=== PATIENT | male | born 1995 | race Caucasian/White ===

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

== ENCOUNTER → 2018-01-02 | Outpatient (CLI) | payer BC ==
[2018-01-02 09:26] LABS: Basophils % (A) 0 %; Eosinophils # (A) 0.2 k/uL (0-0.7); Eosinophils % (A) 3 %; HCT 41.7 % (39.0-53.0); Lymphocytes # (A) 2.4 k/uL (1.0-4.8); Lymphocytes % (A) 39 %; MCH 28.6 pg (25.0-35.0); MCHC 33.5 g/dL (31.0-37.0); MCV 85.3 fL (80.0-100.0); Mean Platelet Volume 6.6; Monocytes # (A) 0.4 k/uL (0-1.0); Monocytes % (A) 7 %; Neutrophils # (A) 2.9 k/uL (1.3-7.7); Neutrophils % (A) 48 %; Platelet Count 278 k/uL (150-450); RBC 4.89 m/uL (4.30-5.90); RDW 12.8 % (11.5-15.5)
[2018-01-02 09:31] LABS: ALT 29 U/L (21-72); AST 23 U/L (17-59); Albumin 4.4 g/dL (3.5-5.0); Alkaline Phosphatase 97 U/L (38-126); Anion Gap 7 mmol/L; Blood Urea Nitrogen 17 mg/dL (9-20); Calcium 9.6 mg/dL (8.4-10.2); Carbon Dioxide 27 mmol/L (22-30); Chloride 106 mmol/L (98-107); Cholesterol 195 mg/dL (<200); Glucose 99 mg/dL (74-99); HDL Cholesterol 52 mg/dL (40-60); LDL Cholesterol,Calculated 119 mg/dL (0-99); Potassium 4.3 mmol/L (3.5-5.1); Sodium 140 mmol/L (137-145); Total Bilirubin 0.5 mg/dL (0.2-1.3); Total Protein 7.2 g/dL (6.3-8.2); Triglycerides 121 mg/dL (<150)
== END | disposition home or self-care (01) ==
LOC: LABWHC1 09:06
PROVIDERS: ATTEND Pediatrics
DX: Z00.00 Encounter for general adult medical examination without abnormal findings (principal); Z13.220 Encounter for screening for lipoid disorders
CPT/HCPCS: 36415; 80053; 80061; 85025

== ENCOUNTER 2019-05-16 07:10 | Emergency (ER) | payer BC, OTHER ==
[2019-05-16] MEDS ORDERED: CLINDAMYCIN 600 MG in DEXTROSE 5% IN WATER 50 ML IVPB STA ×2 (07:46)
[2019-05-16 08:27] LABS: Basophils % (A) 0 %; Eosinophils # (A) 0.2 k/uL (0-0.7); Eosinophils % (A) 2 %; HCT 39.7 % (39.0-53.0); Lymphocytes # (A) 2.1 k/uL (1.0-4.8); Lymphocytes % (A) 18 %; MCH 30.1 pg (25.0-35.0); MCHC 35.2 g/dL (31.0-37.0); MCV 85.7 fL (80.0-100.0); Mean Platelet Volume 6.8; Monocytes # (A) 0.7 k/uL (0-1.0); Monocytes % (A) 6 %; Neutrophils # (A) 8.6 k/uL (1.3-7.7); Neutrophils % (A) 73 %; Platelet Count 311 k/uL (150-450); RBC 4.64 m/uL (4.30-5.90); RDW 12.2 % (11.5-15.5); WBC 11.7 k/uL (3.8-10.6)
[2019-05-16 08:30] LABS: ALT 22 U/L (21-72); AST 22 U/L (17-59); African American GFR (CKD) >90 (>60 ml/min/1.73 sqM); Albumin 4.3 g/dL (3.5-5.0); Alkaline Phosphatase 88 U/L (38-126); Anion Gap 12 mmol/L; Blood Urea Nitrogen 12 mg/dL (9-20); Carbon Dioxide 24 mmol/L (22-30); Chloride 108 mmol/L (98-107); Glucose 86 mg/dL (74-99); Non-African American GFR(CKD) >90 (>60 ml/min/1.73 sqM); Potassium 4.4 mmol/L (3.5-5.1); Sodium 144 mmol/L (137-145); Total Bilirubin 0.5 mg/dL (0.2-1.3); Total Protein 7.6 g/dL (6.3-8.2)
--- NOTE | 2019-05-16 08:59 | CT ---
EXAMINATION TYPE: CT soft tissue neck w con DATE OF EXAM: 05/16/2019 COMPARISON: None HISTORY: Dental abscess CT DLP: 238 mGycm CONTRAST: CT scan of the neck is performed with IV Contrast, patient injected with 100 ml mL of Isovue 300. Contrast enhanced CT of the neck was performed from the skull base through the lung apices. AIRWAY: The supraglottic, glottic, and subglottic portions of the airway appear patent and free of mass. SALIVARY GLANDS: The submandibular and parotid glands are free of mass or inflammatory process. THYROID GLAND: No nodules or masses seen. LYMPH NODES: No adenopathy seen greater than 1cm. LUNG APICES: No nodule or mass is seen. OTHER there is a small subperiosteal and periapical abscess left posterior mandibular first molar. Th ere is surrounding soft tissue edema. No drainable collection seen. Small focus of bone defect noted. IMPRESSION: Small subperiosteal and periapical abscess left posterior mandibular first molar. There is surroundi ng soft tissue edema. No drainable collection seen. Small focus of bone defect noted.
[2019-05-16] MEDS ORDERED: DEXAMETHASONE SOD PHOSPHATE 10 MG/ML 1 ML VIAL IV STA (09:31)
--- NOTE | 2019-05-16 09:36 | ED ---
ENT HPI - General Chief complaint: Dental/Oral Stated complaint: Dental Pain Time Seen by Provider: 05/16/19 07:18 Source: patient Mode of arrival: ambulatory Limitations: no limitations - History of Present Illness Initial comments: The patient is a 23-year-old male with no past medical history who presents to the emergency department with reported dental infection. He states that it is been present for the past week. He had a previous root canal of tooth 18 in September and as of recently developed pain and swelling. He saw Dr. Al in office last week. He was started on penicillin with one refill. States been taking it 4 times a day as directed. He has a follow-up appointment with the burlap worker on Tuesday. States that his swelling has gotten increasingly worse. He is now having swelling to his jaw which is tracking down to his neck. He denies any difficulty swallowing or shortness of breath. No sensation in his airway is closing off. No fevers or chills. No nausea or vomiting. Denies any chest pain or shortness of breath. States that his pain has improved but the swelling is getting worse. There are no other alleviating, precipitating or modifying factors - Related Data Home Medications Medication Instructions Recorded Confirmed Ibuprofen [Motrin Ib] 800 mg PO Q6H PRN 05/16/19 05/16/19 Penicillin V Potassium [Pen Vee K] 500 mg PO QID 05/16/19 05/16/19 Previous Rx's Medication Instructions Recorded Clindamycin HCl 300 mg PO Q6HR #40 cap 05/16/19 Allergies Allergy/AdvReac Type Severity Reaction Status Date / Time No Known Allergies Allergy Verified 05/16/19 08:07 Review of Systems ROS Statement: Those systems with pertinent positive or pertinent negative responses have been documented in the HPI. ROS Other: All systems not noted in ROS Statement are negative. Past Medical History Past Medical History: No Reported History History of Any Multi-Drug Resistant Organisms: None Reported Past Surgical History: No Surgical Hx Reported, Orthopedic Surgery Additional Past Surgical History / Comment(s): R knee Past Psychological History: No Psychological Hx Reported Smoking Status: Never smoker Past Alcohol Use History: None Reported Past Drug Use History: None Reported General Exam Limitations: no limitations Course Vital Signs 05/16/19 05/16/19 07:13 09:44 Temperature 97.6 F 98.0 F Pulse Rate 78 69 Respiratory 18 21 Rate Blood Pressure 131/82 129/71 O2 Sat by Pulse 100 99 Oximetry Medical Decision Making - Medical Decision Making Upon arrival the patient was placed into room 9. A thorough history and physical exam was performed. Peripheral IV was established. The patient was given a dose of clindamycin. I recommended laboratory studies. White blood cell count is 11.7. CMP is remarkable. The patient does agree to a CT of the soft tissue neck with contrast inserted a small subperiosteal and periapical abscess left posterior mandibular first molar. There is surrounding soft tissue edema. No drainable collection seen. Small focus of bony defect noted. The patient does not demonstrate any crepitance or brawny edema of the neck. No dr telma, trismus, hoarseness or stridor. At [address] Goldstein who stated that the tooth would have to be extracted. He could accommodate the patient in his office tomorrow. He recomme nded that provide the patient with Decadron. I spoke with family who requested that they follow up with her own dentist for extraction. At 925 I did discuss the case with Dr. Al, who is the patient's dentist. He can accommodate the patient in office at 1045 for extraction. Agreed with clindamycin and steroids. The patient is informed that he needs to remain nothing by mouth.the patient and his mother with the treatment plan. He was then discharged in stable condition. He needs to return to the emergency room for any new or worsening symptoms - Lab Data Result diagrams: 05/16/19 08:08 05/16/19 08:08 Lab Results 05/16/19 05/16/19 05/16/19 Range/Units 08:08 08:08 08:08 WBC 11.7 H (3.8-10.6) k/uL RBC 4.64 (4.30-5.90) m/uL Hgb 14.0 (13.0-17.5) gm/dL Hct 39.7 (39.0-53.0) % MCV 85.7 (80.0-100.0) fL MCH 30.1 (25.0-35.0) pg MCHC 35.2 (31.0-37.0) g/dL RDW 12.2 (11.5-15.5) % Plt Count 311 (150-450) k/uL Neutrophils % 73 % Lymphocytes % 18 % Monocytes % 6 % Eosinophils % 2 % Basophils % 0 % Neutrophils # 8.6 H (1.3-7.7) k/uL Lymphocytes # 2.1 (1.0-4.8) k/uL Monocytes # 0.7 (0-1.0) k/uL Eosinophils # 0.2 (0-0.7) k/uL Basophils # 0.0 (0-0.2) k/uL Sodium 144 (137-145) mmol/L Potassium 4.4 (3.5-5.1) mmol/L Chloride 108 H (98-107) mmol/L Carbon Dioxide 24 (22-30) mmol/L Anion Gap 12 mmol/L BUN 12 (9-20) mg/dL Creatinine 0.70 (0.66-1.25) mg/dL Est GFR (CKD-EPI)AfAm >90 (>60 ml/min/1.73 sqM) Est GFR (CKD-EPI)NonAf >90 (>60 ml/min/1.73 sqM) Glucose 86 (74-99) mg/dL Plasma Lactic Acid Dominik 1.4 (0.7-2.0) mmol/L Calcium 10.0 (8.4-10.2) mg/dL Total Bilirubin 0.5 (0.2-1.3) mg/dL AST 22 (17-59) U/L ALT 22 (21-72) U/L Alkaline Phosphatase 88 (38-126) U/L Total Protein 7.6 (6.3-8.2) g/dL Albumin 4.3 (3.5-5.0) g/dL Disposition Clinical Impression: Dental caries, Periapical abscess Disposition: HOME SELF-CARE Condition: Stable Instructions (If sedation given, give patient instructions): Dental Abscess (ED) Additional Instructions: Please proceed to Dr. Cowart's office. Your appointment is at 1045 am. Do not eat or drink anything until your procedure is performed. Return to the emergency room for any new or worsening symptoms Prescriptions: Clindamycin HCl 300 mg PO Q6HR #40 cap Is patient prescribed a controlled substance at d/c from ED?: No Referrals: Roberto Cifuentes MD [Primary Care Provider] - 1-2 days Time of Disposition: 09:36
[2019-05-16 09:46] VITALS: BP 129/71; PULSE 69; RESP 21; TEMP 98
== END 2019-05-16 09:46 | disposition home or self-care (01) ==
LOC: EC 07:10
DX: K04.7 Periapical abscess without sinus (principal); K02.9 Dental caries, unspecified
CPT/HCPCS: 36415; 80053; 83605; 85025; 70491; 99283; 96365; 96375; J1100; Q9967

== ENCOUNTER 2019-05-19 05:56 | Emergency (ER) | payer BC, OTHER ==
[2019-05-19 06:04] VITALS: TEMP 98.2
[2019-05-19] MEDS ORDERED: AMPICILLIN-SULBACTAM 3 GM in SODIUM CHLORIDE 0.9% 100 ML IVPB STA (06:41)
--- NOTE | 2019-05-19 06:46 | ED ---
ENT HPI - General Chief complaint: Dental/Oral Stated complaint: Face swelling Time Seen by Provider: 05/19/19 06:08 Source: patient, RN notes reviewed, old records reviewed Mode of arrival: ambulatory Limitations: no limitations - History of Present Illness Initial comments: Patient is Yoandy 23-year-old male coming presents emergency room today for reeva luation for concerns for left lower jaw dental pain. Patient reports that he had a root canal that was infected removed on Tuesday after being evaluated at the ER at that time. He's been taking clindamycin since Tuesday. They report that after the root canal Patient did have some minor improvement of the swelling but in following day the pain and swelling worsen. Patient reports he has no trouble with swallowing or breathing. Patient states he's had no fevers or chills at this time. Patient states it feels like there is a firm mass relocate his jaw. He did report when he was in the emergency department on 05/16/19 he had a CAT scan. - Related Data Home Medications Medication Instructions Recorded Confirmed Ibuprofen [Motrin Ib] 800 mg PO Q6H PRN 05/16/19 05/16/19 Penicillin V Potassium [Pen Vee K] 500 mg PO QID 05/16/19 05/16/19 Previous Rx's Medication Instructions Recorded Clindamycin HCl 300 mg PO Q6HR #40 cap 05/16/19 Allergies Allergy/AdvReac Type Severity Reaction Status Date / Time No Known Allergies Allergy Verified 05/19/19 06:04 Review of Systems ROS Statement: Those systems with pertinent positive or pertinent negative responses have been documented in the HPI. ROS Other: All systems not noted in ROS Statement are negative. Past Medical History Past Medical History: No Reported History History of Any Multi-Drug Resistant Organisms: None Reported Past Surgical History: No Surgical Hx Reported, Orthopedic Surgery Additional Past Surgical History / Comment(s): R knee Past Psychological History: No Psychological Hx Reported Smoking Status: Never smoker Past Alcohol Use History: None Reported Past Drug Use History: None Reported General Exam - General Exam Comments Initial Comments: Pleasant 23-year-old male. No distress. Limitations: no limitations General appearance: alert, in no apparent distress Head exam: Present: atraumatic, normocephalic, normal inspection Eye exam: Present: normal appearance, PERRL, EOMI. Absent: scleral icterus, conjunctival injection, periorbital swelling ENT exam: Present: normal exam, mucous membranes moist, other (tenderness over R lower mandible, firm mass. Gum line shows missing right lower molar. No drainable mass in lower jaw at this time. PAtient has no trisumus. ) Neck exam: Present: normal inspection. Absent: tenderness, meningismus, lymphadenopathy Respiratory exam: Present: normal lung sounds bilaterally. Absent: respiratory distress, wheezes, rales, rhonchi, stridor Cardiovascular Exam: Present: regular rate, normal rhythm, normal heart sounds. Absent: systolic murmur, diastolic murmur, rubs, gallop, clicks GI/Abdominal exam: Present: soft, normal bowel sounds. Absent: distended, tenderness, guarding, rebound, rigid Extremities exam: Present: normal inspection, full ROM, normal capillary refill. Absent: tenderness, pedal edema, joint swelling, calf tenderness Back exam: Present: normal inspection Neurological exam: Present: alert, oriented X3, CN II-XII intact Psychiatric exam: Present: normal affect, normal mood Skin exam: Present: warm, dry, intact, normal color. Absent: rash Course Vital Signs 05/19/19 06:01 Temperature 98.2 F Pulse Rate 85 Respiratory 18 Rate Blood Pressure 129/77 O2 Sat by Pulse 98 Oximetry Medical Decision Making - Medical Decision Making 23-year-old male presents with right-sided lower mandible swelling. Patient was seen in emergency department on Tuesday started on clindamycin. Patient has been taking this as prescribed. He had a root canal removed on Tuesday as well. Patient reports she has not followed up with Ricardo's time. Patient reports that he is afebrile, denies any significant trismus or difficulty breathing or swallowing. I discussed case with Dr. Oneill, who examined the Patient as well. Recommended that we can give Patient a dose of Unasyn and Decadron in emergency department. No need for further imaging at this time as he did have a CAT scan 3 days ago. And the Patient can continue clindamycin upon discharge. Discussed the importance of following up promptly with his dentist to proceeded with the root canal removal. Angles given referral for oral maxillofacial surgeon. Patient is agreeable history plan will comply. Return parameters were discussed. - Lab Data Result diagrams: 05/19/19 06:55 05/19/19 06:55 Lab Results 05/19/19 05/19/19 Range/Units 06:55 06:55 WBC 11.7 H (3.8-10.6) k/uL RBC 4.67 (4.30-5.90) m/uL Hgb 13.7 (13.0-17.5) gm/dL Hct 39.8 (39.0-53.0) % MCV 85.1 (80.0-100.0) fL MCH 29.2 (25.0-35.0) pg MCHC 34.3 (31.0-37.0) g/dL RDW 12.2 (11.5-15.5) % Plt Count 335 (150-450) k/uL Neutrophils % 71 % Lymphocytes % 19 % Monocytes % 6 % Eosinophils % 1 % Basophils % 0 % Neutrophils # 8.3 H (1.3-7.7) k/uL Lymphocytes # 2.3 (1.0-4.8) k/uL Monocytes # 0.7 (0-1.0) k/uL Eosinophils # 0.2 (0-0.7) k/uL Basophils # 0.0 (0-0.2) k/uL Sodium 143 (137-145) mmol/L Potassium 4.6 (3.5-5.1) mmol/L Chloride 107 (98-107) mmol/L Carbon Dioxide 27 (22-30) mmol/L Anion Gap 9 mmol/L BUN 17 (9-20) mg/dL Creatinine 0.83 (0.66-1.25) mg/dL Est GFR (CKD-EPI)AfAm >90 (>60 ml/min/1.73 sqM) Est GFR (CKD-EPI)NonAf >90 (>60 ml/min/1.73 sqM) Glucose 105 H (74-99) mg/dL Calcium 10.0 (8.4-10.2) mg/dL Total Bilirubin 0.7 (0.2-1.3) mg/dL AST 21 (17-59) U/L ALT 17 (4-49) U/L Alkaline Phosphatase 97 (38-126) U/L Total Protein 7.7 (6.3-8.2) g/dL Albumin 4.4 (3.5-5.0) g/dL Disposition Clinical Impression: Periapical abscess Disposition: HOME SELF-CARE Condition: Stable Instructions (If sedation given, give patient instructions): Dental Abscess (ED) Additional Instructions: Recommended close follow-up with your dentist. Return to the emergency department if any alarming signs or symptoms occur. Rest, remain hydrated. Continue clindamycin prescription. There is any fevers return for reevaluation. Is patient prescribed a controlled substance at d/c from ED?: No Referrals: Roberto Cifuentes MD [Primary Care Provider] - 1-2 days Kalia Goldstein DDS [STAFF PHYSICIAN] - 1-2 days Time of Disposition: 07:48
[2019-05-19 07:06] LABS: Basophils % (A) 0 %; Eosinophils # (A) 0.2 k/uL (0-0.7); Eosinophils % (A) 1 %; HCT 39.8 % (39.0-53.0); HGB 13.7 gm/dL (13.0-17.5); Lymphocytes # (A) 2.3 k/uL (1.0-4.8); Lymphocytes % (A) 19 %; MCH 29.2 pg (25.0-35.0); MCHC 34.3 g/dL (31.0-37.0); MCV 85.1 fL (80.0-100.0); Mean Platelet Volume 6.9; Monocytes # (A) 0.7 k/uL (0-1.0); Monocytes % (A) 6 %; Neutrophils # (A) 8.3 k/uL (1.3-7.7); Neutrophils % (A) 71 %; Platelet Count 335 k/uL (150-450); RBC 4.67 m/uL (4.30-5.90); RDW 12.2 % (11.5-15.5); WBC 11.7 k/uL (3.8-10.6)
[2019-05-19] MEDS ORDERED: DEXAMETHASONE SOD PHOSPHATE 10 MG/ML 1 ML VIAL IV STA (07:16)
[2019-05-19 07:31] LABS: ALT 17 U/L (4-49); AST 21 U/L (17-59); African American GFR (CKD) >90 (>60 ml/min/1.73 sqM); Albumin 4.4 g/dL (3.5-5.0); Alkaline Phosphatase 97 U/L (38-126); Anion Gap 9 mmol/L; Blood Urea Nitrogen 17 mg/dL (9-20); Carbon Dioxide 27 mmol/L (22-30); Chloride 107 mmol/L (98-107); Glucose 105 mg/dL (74-99); Non-African American GFR(CKD) >90 (>60 ml/min/1.73 sqM); Potassium 4.6 mmol/L (3.5-5.1); Sodium 143 mmol/L (137-145); Total Bilirubin 0.7 mg/dL (0.2-1.3); Total Protein 7.7 g/dL (6.3-8.2)
[2019-05-19 08:31] VITALS: BP 121/76; PULSE 76; RESP 169
== END 2019-05-19 08:16 | disposition home or self-care (01) ==
LOC: EC 05:56
DX: K04.7 Periapical abscess without sinus (principal)
CPT/HCPCS: 36415; 80053; 85025; 87040; 99284; 96365; 96375; J1100; J0295

== ENCOUNTER 2021-08-19 16:45 | Emergency (ER) | payer BC, OTHER ==
[2021-08-19 17:02] VITALS: BP 126/85; PULSE 95; RESP 18; TEMP 98.7
--- NOTE | 2021-08-19 19:43 | ED ---
General Adult HPI - General Chief complaint: GI Bleed Stated complaint: ABD pain & blood in stool Time Seen by Provider: 08/19/21 19:26 Source: patient, family Mode of arrival: ambulatory Limitations: no limitations - History of Present Illness Initial comments: Dictation was produced using [employer] dictation software. please excuse any grammatical, word or spelling errors. Chief Complaint: 25 y Old male presents with fianc for GI bleed and suprapubic pain History of Present Illness: 25-year-old mild he has no safety past medical history. This morning he woke up with GI bleed. States there were several drops of blood in the toilet. He's had multiple bouts of dyschezia today. Patient has suprapubic abdominal pain and denies any fever or constitutional symptoms. Patient has any recent travel. He works on a farm. He denies any rectal pain. The ROS documented in this emergency department record has been reviewed and confirmed by me. Those systems with pertinent positive or negative responses have been documented in the HPI. All other systems are other negative and/or noncontributory. PHYSICAL EXAM: General Impression: Alert and oriented x3, not in acute distress HEENT: Normocephalic atraumatic, extra-ocular movements intact, pupils equal and reactive to light bilaterally, mucous membranes moist. Cardiovascular: Heart regular rate and rhythm Chest: Able to complete full sentences, no retractions, no tachypnea Abdomen: abdomen soft, mild tenderness to the suprapubic area, non-distended, no organomegaly Musculoskeletal: Pulses present and equal in all extremities, no peripheral edema Motor: no focal deficits noted Neurological: CN II-XII grossly intact, no focal motor or sensory deficits noted Skin: Intact with no visualized rashes Psych: Normal affect and mood Rectal: No hemorrhoids or fissures, patient given a glove and provided stool sample for stool occult blood test ED course: 25-year-old male presents to the emergency department for suprapubic abdominal pain and GI bleed. Vital signs upon arrival are within acceptable limits. Labs are evaluation obtained. Mild leukocytosis of 13.2. Normal stable. Coag panel is negative. Metabolic panel is within acceptable limits. Stool occult blood is positive. Computed tomography scan abdomen and pelvis shows no acute abnormalities. Suspe ct that patient has a bleeding internal hemorrhoid. Patient given referral to GI doctor. - Related Data Home Medications Medication Instructions Recorded Confirmed No Known Home Medications 08/19/21 08/19/21 Allergies Allergy/AdvReac Type Severity Reaction Status Date / Time No Known Allergies Allergy Verified 08/19/21 21:09 Review of Systems ROS Statement: Those systems with pertinent positive or pertinent negative responses have been documented in the HPI. ROS Other: All systems not noted in ROS Statement are negative. Past Medical History Past Medical History: No Reported History History of Any Multi-Drug Resistant Organisms: None Reported Past Surgical History: No Surgical Hx Reported, Orthopedic Surgery Additional Past Surgical History / Comment(s): R knee Past Psychological History: No Psychological Hx Reported Smoking Status: Never smoker Past Alcohol Use History: None Reported Past Drug Use History: None Reported General Exam Limitations: no limitations Course Vital Signs 08/19/21 17:01 Temperature 98.7 F Pulse Rate 95 Respiratory 18 Rate Blood Pressure 126/85 O2 Sat by Pulse 97 Oximetry Medical Decision Making - Lab Data Result diagrams: 08/19/21 20:02 08/19/21 20:02 Lab Results 08/19/21 08/19/21 08/19/21 Range/Units 19:44 19:44 20:02 WBC 13.2 H (3.8-10.6) k/uL RBC 5.11 (4.30-5.90) m/uL Hgb 15.1 (13.0-17.5) gm/dL Hct 43.7 (39.0-53.0) % MCV 85.5 (80.0-100.0) fL MCH 29.5 (25.0-35.0) pg MCHC 34.4 (31.0-37.0) g/dL RDW 13.2 (11.5-15.5) % Plt Count 289 (150-450) k/uL MPV 7.2 Neutrophils % 78 % Lymphocytes % 16 % Monocytes % 4 % Eosinophils % 1 % Basophils % 0 % Neutrophils # 10.4 H (1.3-7.7) k/uL Lymphocytes # 2.1 (1.0-4.8) k/uL Monocytes # 0.5 (0-1.0) k/uL Eosinophils # 0.1 (0-0.7) k/uL Basophils # 0.0 (0-0.2) k/uL PT (9.0-12.0) sec INR (<1.2) APTT (22.0-30.0) sec Sodium (137-145) mmol/L Potassium (3.5-5.1) mmol/L Chloride (98-107) mmol/L Carbon Dioxide (22-30) mmol/L Anion Gap mmol/L BUN (9-20) mg/dL Creatinine (0.66-1.25) mg/dL Est GFR (CKD-EPI)AfAm (>60 ml/min/1.73 sqM) Est GFR (CKD-EPI)NonAf (>60 ml/min/1.73 sqM) Glucose (74-99) mg/dL Calcium (8.4-10.2) mg/dL Stool Occult Blood Positive (Negative) Blood Type AB Negative Blood Type Recheck No Previous Record Bld Type Recheck Status CABO Indicated Antibody Screen NEGATIVE Spec Expiration Date 08/22/2021 - 234308/19/21 08/19/21 Range/Units 20:02 20:02 WBC (3.8-10.6) k/uL RBC (4.30-5.90) m/uL Hgb (13.0-17.5) gm/dL Hct (39.0-53.0) % MCV (80.0-100.0) fL MCH (25.0-35.0) pg MCHC (31.0-37.0) g/dL RDW (11.5-15.5) % Plt Count (150-450) k/uL MPV Neutrophils % % Lymphocytes % % Monocytes % % Eosinophils % % Basophils % % Neutrophils # (1.3-7.7) k/uL Lymphocytes # (1.0-4.8) k/uL Monocytes # (0-1.0) k/uL Eosinophils # (0-0.7) k/uL Basophils # (0-0.2) k/uL PT 10.9 (9.0-12.0) sec INR 1.0 (<1.2) APTT 22.4 (22.0-30.0) sec Sodium 137 (137-145) mmol/L Potassium 3.9 (3.5-5.1) mmol/L Chloride 105 (98-107) mmol/L Carbon Dioxide 21 L (22-30) mmol/L Anion Gap 11 mmol/L BUN 12 (9-20) mg/dL Creatinine 0.60 L (0.66-1.25) mg/dL Est GFR (CKD-EPI)AfAm >90 (>60 ml/min/1.73 sqM) Est GFR (CKD-EPI)NonAf >90 (>60 ml/min/1.73 sqM) Glucose 114 H (74-99) mg/dL Calcium 9.6 (8.4-10.2) mg/dL Stool Occult Blood (Negative) Blood Type Blood Type Recheck Bld Type Recheck Status Antibody Screen Spec Expiration Date Disposition Clinical Impression: Hematochezia Disposition: HOME SELF-CARE Condition: Good Instructions (If sedation given, give patient instructions): Gastrointestinal Bleeding (ED) Is patient prescribed a controlled substance at d/c from ED?: No Referrals: Lien Granados MD [STAFF PHYSICIAN] - 1-2 days Roberto Cifuentes MD [Primary Care Provider] - 1-2 days
[2021-08-19 20:13] LABS: Basophils % (A) 0 %; Eosinophils # (A) 0.1 k/uL (0-0.7); Eosinophils % (A) 1 %; HCT 43.7 % (39.0-53.0); HGB 15.1 gm/dL (13.0-17.5); Lymphocytes # (A) 2.1 k/uL (1.0-4.8); Lymphocytes % (A) 16 %; MCH 29.5 pg (25.0-35.0); MCHC 34.4 g/dL (31.0-37.0); MCV 85.5 fL (80.0-100.0); Mean Platelet Volume 7.2; Monocytes # (A) 0.5 k/uL (0-1.0); Monocytes % (A) 4 %; Neutrophils # (A) 10.4 k/uL (1.3-7.7); Neutrophils % (A) 78 %; Platelet Count 289 k/uL (150-450); RBC 5.11 m/uL (4.30-5.90); RDW 13.2 % (11.5-15.5); WBC 13.2 k/uL (3.8-10.6)
[2021-08-19 20:16] LABS: African American GFR (CKD) >90 (>60 ml/min/1.73 sqM); Anion Gap 11 mmol/L; Blood Urea Nitrogen 12 mg/dL (9-20); Calcium 9.6 mg/dL (8.4-10.2); Carbon Dioxide 21 mmol/L (22-30); Chloride 105 mmol/L (98-107); Glucose 114 mg/dL (74-99); Non-African American GFR(CKD) >90 (>60 ml/min/1.73 sqM); Potassium 3.9 mmol/L (3.5-5.1); Sodium 137 mmol/L (137-145)
[2021-08-19 20:19] LABS: Partial Thromboplastin Time 22.4 sec (22.0-30.0); Prothrombin Time 10.9 sec (9.0-12.0)
--- NOTE | 2021-08-19 21:13 | CT ---
EXAMINATION TYPE: CT abdomen pelvis w con DATE OF EXAM: 08/19/2021 COMPARISON: None HISTORY: abd pain and blood in stool CT DLP: 1368.2 mGycm Automated exposure control for dose reduction was used. CONTRAST: Performed with IV Contrast, patient injected with 100 mL of Isovue 300. Images obtained from the diaphragm to the floor of the pelvis with IV contrast. Lung bases are clear. There is no pleural effusion. Heart size is normal. There is no pericardial eff usion. Liver spleen and stomach pancreas gallbladder appear intact. The bile ducts are not dilated. There is no adrenal mass. Kidneys show satisfactory contrast opacification. There is no hydronephrosi s. Ureters are not dilated. There is no retroperitoneal adenopathy. Bladder distends smoothly. There is no inguinal hernia. There is no free fluid in the pelvis. No pelvic mass. Appendix is posterior an d appears normal. There is no mesenteric edema. There is no ascites or free air. There is no bowel obstruction. Delayed images show normal renal excretion. The lumbar vertebrae have normal alignment. There is no compression fracture. There is L5 bilateral s pondylolysis without spondylolisthesis. The bony pelvis is intact. Hip joints are intact. Sacroiliac joints appear normal. IMPRESSION: L5 spondylolysis without spondylolisthesis. Normal appendix. No acute abnormality within the abdomen and pelvis. No sign of colitis.
== END 2021-08-19 21:45 | disposition home or self-care (01) ==
LOC: EC 16:45
DX: K92.1 Melena (principal)
CPT/HCPCS: 99284; 36415; 86900; 86901; 80048; 85025; 85610; 85730; 86850; 82272; 74177; Q9967

== ENCOUNTER 2021-09-27 08:10 | Emergency (ER) | payer OTHER ==
[2021-09-27] MEDS ORDERED: CLINDAMYCIN 150 MG CAP PO STA ×2 (10:15)
--- NOTE | 2021-09-27 10:15 | ED ---
Skin/Abscess/FB HPI - General Chief complaint: Skin/Abscess/Foreign Body Stated complaint: foot lac, infection Time Seen by Provider: 09/27/21 10:09 Source: patient, family Mode of arrival: ambulatory Limitations: no limitations - History of Present Illness Initial comments: 25-year-old male who states he had a blister on his left foot over the fourth t oe that popped the last couple days. He complains some redness to the area and discomfort no fevers chills or sweats. There is some redness over the dorsal aspect the left foot which is ascending. He states that should blister popped it was clear fluid. No other current complaints or modifying factors MD complaint: other - Related Data Previous Rx's Medication Instructions Recorded Clindamycin [Cleocin] 300 mg PO Q6H #40 cap 09/27/21 Allergies Allergy/AdvReac Type Severity Reaction Status Date / Time No Known Allergies Allergy Verified 09/27/21 08:25 Review of Systems ROS Statement: Those systems with pertinent positive or pertinent negative responses have been documented in the HPI. ROS Other: All systems not noted in ROS Statement are negative. Past Medical History Past Medical History: No Reported History History of Any Multi-Drug Resistant Organisms: None Reported Past Surgical History: No Surgical Hx Reported, Orthopedic Surgery Additional Past Surgical History / Comment(s): R knee Past Psychological History: No Psychological Hx Reported Smoking Status: Never smoker Past Alcohol Use History: None Reported Past Drug Use History: None Reported General Exam - General Exam Comments Initial Comments: This is a well-developed well-nourished awake alert oriented 3 male Limitations: no limitations General appearance: alert, in no apparent distress Head exam: Present: atraumatic Extremities exam: Present: full ROM, normal capillary refill, other (Examination left foot reveals evidence of the ruptured blister over the fourth MCP joint dorsal aspect no discomfort on range of motion no drainage seen at this time localized erythema to the dorsum of the foot extending approximately 8 cm proximal. No lymphadenopathy however proximal to this. No ) Neurological exam: Present: alert, oriented X3, CN II-XII intact Psychiatric exam: Present: normal affect, normal mood Skin exam: Present: warm, other (As noted above) Course Vital Signs 09/27/21 08:23 Temperature 97.5 F L Pulse Rate 74 Respiratory 18 Rate Blood Pressure 126/84 O2 Sat by Pulse 99 Oximetry Medical Decision Making - Medical Decision Making Patient does have evidence of a ruptured blister with some secondary infection. Patient will be placed on appropriate medication/antibiotics did recommend elevation. Also we did discuss wound care. Disposition Clinical Impression: Left foot infection, Cellulitis and abscess of foot Disposition: HOME SELF-CARE Condition: Good Instructions (If sedation given, give patient instructions): Cellulitis (ED) Prescriptions: Clindamycin [Cleocin] 300 mg PO Q6H #40 cap Is patient prescribed a controlled substance at d/c from ED?: No Referrals: Roberto Cifuentes MD [Primary Care Provider] - 1-2 days Decision Date: 09/27/21 Decision Time: 10:14
[2021-09-27 10:27] VITALS: BP 132/86; PULSE 68; RESP 16; TEMP 97.8
== END 2021-09-27 10:21 | disposition home or self-care (01) ==
LOC: EC 08:10
DX: L02.612 Cutaneous abscess of left foot (principal); L03.116 Cellulitis of left lower limb; S90.822A Blister (nonthermal), left foot, initial encounter; X58.XXXA Exposure to other specified factors, initial encounter
CPT/HCPCS: 99282

== ENCOUNTER → 2023-05-07 | Outpatient (CLI) | payer OTHER ==
[2023-05-07 13:32] LABS: Estradiol <20.0 pg/mL
[2023-05-07 15:48] LABS: Follicle Stimulating Hormone <0.3 mIU/mL; Luteinizing Hormone <1.0 mIU/mL
== END | disposition home or self-care (01) ==
LOC: LABWHC1 08:33
PROVIDERS: ATTEND Urology
DX: N53.19 Other ejaculatory dysfunction (principal)
CPT/HCPCS: 36415; 82040; 82670; 83001; 83002; 83036; 84146; 84270; 84403

== ENCOUNTER → 2023-07-04 | Outpatient (CLI) | payer OTHER ==
[2023-07-04 12:15] LABS: % Iron Saturation 43.42 (15.00-50.00)
== END | disposition home or self-care (01) ==
LOC: LABWHC1 08:59
PROVIDERS: ATTEND Urology
DX: E29.1 Testicular hypofunction (principal)
CPT/HCPCS: 36415; 82728; 83520; 83540; 83550

== ENCOUNTER → 2023-07-09 | Outpatient (CLI) | payer OTHER ==
--- NOTE | 2023-07-11 12:27 | MR ---
EXAMINATION TYPE: MR pituitary wo/w con DATE OF EXAM: 07/09/2023 10:22 AM COMPARISON: NONE HISTORY: Hypogonadotropic hypogonadism CONTRAST: Patient received 10 mL intravenous Gadavist gadolinium contrast. Multiplanar MultiSpin echo imaging of the pituitary fossa was performed. Unenhanced followed by cont rast enhanced images are submitted. The unenhanced portion of the study fails to demonstrate evidence for hyperintense pituitary lesion. The pituitary gland is of normal size and measures 9.7 x 7.0 mm. Following contrast administration there is no evidence for filling defect to suggest microadenoma. Pituitary stalk is midline. Supras ellar cistern is unremarkable without evidence for mass. Optic chiasm has a normal appearance. Cave rnous sinus including the carotid vessels appear to be within normal limits. IMPRESSION: 1. No evidence for pituitary micro or macroadenoma.
== END | disposition home or self-care (01) ==
LOC: RADMRIMAIN 09:08
PROVIDERS: ATTEND Urology
DX: E23.0 Hypopituitarism (principal)
CPT/HCPCS: 70553; A9585

== ENCOUNTER → 2024-02-10 | Outpatient (CLI) | payer OTHER ==
[2024-02-10 17:48] LABS: Estradiol <20.0 pg/mL
[2024-02-10 18:14] LABS: Follicle Stimulating Hormone <0.3 mIU/mL; Luteinizing Hormone <1.0 mIU/mL
== END | disposition home or self-care (01) ==
LOC: LABWHC1 07:46
PROVIDERS: ATTEND Urology
DX: N50.0 Atrophy of testis (principal); E29.1 Testicular hypofunction
CPT/HCPCS: 36415; 82670; 83001; 83002; 83520; 84403

== ENCOUNTER → 2024-03-24 | Outpatient (CLI) | payer OTHER ==
[2024-03-24 13:19] LABS: HCT 45.4 % (39.6-50.0); HGB 15.3 g/dL (13.0-17.0); MCHC 33.7 g/dL (32.0-37.0); NRBC Per 100 WBC 0 X 10*3/uL (0.00-0.01); Platelet Count 285 X 10*3/uL (140-440); RBC 5.28 X 10*6/uL (4.40-5.60); WBC 9.36 X 10*3/uL (4.50-10.00)
[2024-03-24 13:58] LABS: Follicle Stimulating Hormone <0.3 mIU/mL; Luteinizing Hormone <1.0 mIU/mL
== END | disposition home or self-care (01) ==
LOC: LABWHC1 08:24
PROVIDERS: ATTEND Urology
CPT/HCPCS: 36415; 82670; 83001; 83002; 84403; 85027